=== PATIENT | female | born 1990 | race American Indian/Alaskan Native ===

== ENCOUNTER 2017-08-23 04:14 | Emergency (ER) | payer OTHER ==
[2017-08-23] MEDS ORDERED: MOTRIN PO ONE (05:29)
[2017-08-23] MEDS ORDERED: PERCOCET 5/325 PO ONE (06:26)
--- NOTE | 2017-08-23 06:58 | XRay Report ---
FINAL REPORT EXAM: XR FOREARM RT HISTORY: RT ARM swelling/redness r/o osteomylitis COMPARISONS: None. FINDINGS: AP and lateral views of the right forearm No bone lesion, periosteal reaction, or fracture. No deformity or gross malalignment. No subcutaneous emphysema. Soft tissue swelling about the distal right forearm and wrist. IMPRESSION: No evidence of osseous destruction. Consider follow-up noncontrast MRI as plain radiography is insensitive for detection of osteomyelitis.
--- NOTE | 2017-08-23 07:35 | Emergency Department Report ---
- General Chief complaint: Skin Rash Stated complaint: INSECT BITE Time Seen by Provider: 08/23/17 07:17 Source: patient, family Mode of arrival: Ambulatory Limitations: No Limitations - History of Present Illness Initial comments: Patient reported that she has a blister on her right wrist area and then she woke up with redness going up her forearm. Pain is 10 out of 10. Denies burning herself. Patient believes that she was bitten by an insect but unsure. She said that the redness is increasing in pain as achy and throbbing. Worse with movement better with rest. [id number] pain medication does not help. Denies any restriction in movement of fingers. Denies any nausea or vomiting. Denies any fever or chills. Redness and pain is localized to the right wrist or forearm. Denies any direct trauma. Denies any burn. Tetanus vaccine is up-to-date. Denies any pain in her hands or fingers. MD complaint: insect bite/sting (lisinopril inside bite with redness and swelling to right forearm), discoloration Onset/Timin -: days(s) Tetanus Up to Date: yes Location: RUE (right forearm) Severity: severe Severity scale (0 -10): 10 Quality: aching (and throbbing) Consistency: constant Improves with: immobilization, rest Worsens with: palpation, movement Context: other (question insect bite) Associated symptoms: athralgias, other (redness and swelling) Treatments Prior to Arrival: other ([id number] pain meds) - Related Data Previous Rx's Medication Instructions Recorded Last Taken Type Clindamycin [Clindamycin CAP] 300 mg PO Q6H 10 Days #10 cap 08/23/17 Unknown Rx Ibuprofen [Motrin] 600 mg PO Q8H PRN #15 tablet 08/23/17 Unknown Rx Oxycodone HCl/Acetaminophen 1 each PO Q6HR PRN #12 tablet 08/23/17 Unknown Rx [Percocet 7.5/325 mg] Allergies Allergy/AdvReac Type Severity Reaction Status Date / Time hairdye Allergy Unknown Rash Uncoded 08/23/17 07:19 Abscess Boil HPI - HPI Chief Complaint: Skin Rash Stated Complaint: INSECT BITE Time Seen by Provider: 08/23/17 07:17 Home Medications: Previous Rx's Medication Instructions Recorded Last Taken Type Clindamycin [Clindamycin CAP] 300 mg PO Q6H 10 Days #10 cap 08/23/17 Unknown Rx Ibuprofen [Motrin] 600 mg PO Q8H PRN #15 tablet 08/23/17 Unknown Rx Oxycodone HCl/Acetaminophen 1 each PO Q6HR PRN #12 tablet 08/23/17 Unknown Rx [Percocet 7.5/325 mg] Allergies/Adverse Reactions: Allergies Allergy/AdvReac Type Severity Reaction Status Date / Time hairdye Allergy Unknown Rash Uncoded 08/23/17 07:19 ED Review of Systems ROS: Stated complaint: INSECT BITE Other details as noted in HPI Comment: All other systems reviewed and negative Constitutional: no symptoms reported ENT: denies: throat pain Respiratory: no symptoms reported Cardiovascular: denies: chest pain, palpitations, dyspnea on exertion, orthopnea , edema, syncope, paroxysmal nocturnal dyspnea Gastrointestinal: denies: abdominal pain, nausea, vomiting, diarrhea Genitourinary: denies: dysuria, hematuria Musculoskeletal: joint swelling, arthralgia. denies: back pain, myalgia Skin: rash, change in color Neurological: denies: headache, numbness, paresthesias, abnormal gait, vertigo ED Past Medical Hx - Past Medical History Previous Medical History?: Yes Additional medical history: Obesity - Surgical History Past Surgical History?: No - Family History Family history: no significant - Social History Smoking Status: Never Smoker Substance Use Type: None - Medications Home Medications: Home Medications Medication Instructions Recorded Confirmed Last Taken Type Clindamycin [Clindamycin CAP] 300 mg PO Q6H 10 Days #10 cap 08/23/17 Unknown Rx Ibuprofen [Motrin] 600 mg PO Q8H PRN #15 tablet 08/23/17 Unknown Rx Oxycodone HCl/Acetaminophen 1 each PO Q6HR PRN #12 tablet 08/23/17 Unknown Rx [Percocet 7.5/325 mg] ED Physical Exam - General Limitations: No Limitations General appearance: alert, in no apparent distress - Head Head exam: Present: atraumatic, normocephalic, normal inspection - Eye Eye exam: Present: normal appearance, PERRL, EOMI. Absent: periorbital swelling , periorbital tenderness Pupils: Present: normal accommodation - ENT ENT exam: Present: normal exam, normal orophraynx, mucous membranes moist - Neck Neck exam: Present: normal inspection, full ROM, other (no C-spine tenderness). Absent: tenderness, meningismus, lymphadenopathy, thyromegaly - Respiratory Respiratory exam: Present: normal lung sounds bilaterally. Absent: respiratory distress, wheezes, rales, rhonchi, stridor, chest wall tenderness, accessory muscle use, decreased breath sounds, prolonged expiratory - Cardiovascular Cardiovascular Exam: Present: regular rate, normal rhythm, normal heart sounds. Absent: systolic murmur, diastolic murmur - GI/Abdominal GI/Abdominal exam: Present: soft, normal bowel sounds. Absent: distended, tenderness, guarding, rebound, rigid, organomegaly, mass, bruit, pulsatile mass , hernia - Extremities Exam Extremities exam: Present: normal inspection, full ROM, tenderness, normal capillary refill, joint swelling, other (no clubbing or cyanosis. Positive swelling to right forearm from wrist to proximal forearm excluded elbow. Tender to palpate. Positive erythema.). Absent: pedal edema, calf tenderness - Expanded Upper Extremity Exam Right General: Present: other (cellulitis). Absent: normal inspection, laceration, abrasion, nail injury (#), foreign body, amputation, avulsion Shoulder Exam: Present: normal inspection, full ROM. Absent: tenderness, swelling, abrasion, laceration, ecchymosis, deformity, crepidus, dislocation, erythema, tenderness over AC joint Upper Arm exam: Present: normal inspection, full ROM. Absent: tenderness, swelling, abrasion, laceration, ecchymosis, deformity, crepidus, dislocation, erythema Elbow exam: Present: normal inspection, full ROM. Absent: tenderness, swelling , abrasion, laceration, ecchymosis, deformity, crepidus, dislocation, erythema, effusion, pain w/ pronation/supination, tenderness over radial head Forearm Wrist exam: Present: full ROM, tenderness (tenderness to palpate from right distal forearm to right proximal forearm.), swelling (right distal forearm the right proximal forearm), erythema (redness to right distal forearm with small opening in and swelling and streaking in proximally stockinette right proximal forearm.). Absent: normal inspection, abrasion, laceration, ecchymosis, crepidus, dislocation, tenderness over anatomical snuff box, pain with axial thumb loading Hand Wrist exam: Present: normal inspection, full ROM, swelling (minimal swelling to dorsal aspect of right hand no finger involvement), other (patient with no restriction of movement to the fingers of right hand or left hand. Bilateral hand wellness ambassador is strong and equal). Absent: tenderness, abrasion, laceration, ecchymosis, deformity, crepidus, dislocation, erythema, amputation, nail avulsion, subungual hematoma Neuro motor exam: Present: wrist extension intact, thumb opposition intact, thumb IP flexion intact, thumb adduction intact, fingers 2-5 abduction intact Neurosensory exam: Present: 2-point discrimination, radial nerve intact, ulnar nerve intact, median nerve intact, other (no signs of tenosynovitis) Vascular: Present: normal capillary refill, radial pulse, brachial pulse, ulnar pulse. Absent: vascular compromise, Pallo, pulse deficit radial art, pulse deficit ulnar art, pulse deficit brachial art - Back Exam Back exam: Present: normal inspection, full ROM, other (ambulates without any difficulties). Absent: tenderness, CVA tenderness (R), CVA tenderness (L), muscle spasm, paraspinal tenderness, vertebral tenderness, rash noted - Neurological Exam Neurological exam: Present: alert, oriented X3, normal gait. Absent: motor sensory deficit, reflexes normal - Psychiatric Psychiatric exam: Present: normal affect, normal mood - Skin Skin exam: Present: warm, dry, intact, rash, erythema (please refer to right upper extremity examination for detail.). Absent: normal color - Expanded Skin Exam Expanded Type of lesion: Present: rash (erythema with small opening into right wrist area and streak in going up right forearm without any elbow involvement.) Distribution of rash: other (right forearm from right wrist to proximal right forearm.) Description of rash: Present: tenderness, erythematous, swelling, blisters ( small blister noted to the distal right forearm or wrist with open in the center ) ED Course Vital Signs 08/23/17 08/23/17 08/23/17 04:34 05:23 06:33 Temperature 98.7 F 98.7 F Pulse Rate 90 89 Respiratory 18 16 18 Rate Blood Pressure 131/87 131/87 O2 Sat by Pulse 98 100 Oximetry 08/23/17 08/23/17 08/23/17 07:33 08:57 09:04 Temperature Pulse Rate 83 Respiratory 18 18 Rate Blood Pressure 149/96 O2 Sat by Pulse 98 97 Oximetry - Reevaluation(s) Reevaluation #1: 08/23/17 08:45 Patient is stable. She was started on IV clindamycin for cellulitis of right forearm. Patient was given Motrin 800 mg by mouth in triage area and later Percocet 5/325 one tablet by mouth and emergency room. Immunizations up-to- date. Awaiting lab. X-ray report reveals no acute bony abnormality but patient does have soft tissue swelling Reevaluation #2: 08/23/17 10:48 Patient is stable. CBC is stable. Tolerated clindamycin IV without any adverse reaction. Pain is controlled. Patient still able to flex and extend bilateral wrist without any difficulties. She has no restriction in movement to both hands and fingers. Swelling is localized to right forearm at risk with streaking proximally. ED Medical Decision Making - Lab Data Result diagrams: 08/23/17 07:55 Lab Results 08/23/17 Range/Units 07:55 WBC 10.0 (4.5-11.0) K/mm3 RBC 5.18 H (3.65-5.03) M/mm3 Hgb 14.0 (10.1-14.3) gm/dl Hct 42.4 (30.3-42.9) % MCV 82 (79-97) fl MCH 27 L (28-32) pg MCHC 33 (30-34) % RDW 15.1 (13.2-15.2) % Plt Count 324 (140-440) K/mm3 Lymph % (Auto) 22.2 (13.4-35.0) % Kidder % (Auto) 7.1 (0.0-7.3) % Eos % (Auto) 4.0 (0.0-4.3) % Baso % (Auto) 0.3 (0.0-1.8) % Lymph # 2.2 (1.2-5.4) K/mm3 Kidder # 0.7 (0.0-0.8) K/mm3 Eos # 0.4 (0.0-0.4) K/mm3 Baso # 0.0 (0.0-0.1) K/mm3 Seg Neutrophils % 66.4 (40.0-70.0) % Seg Neutrophils # 6.6 (1.8-7.7) K/mm3 - Radiology Data Radiology results: report reviewed X-ray of right forearm reveal no acute bony abnormality. Patient does have soft tissue swelling to right forearm and wrist area. - Medical Decision Making ED course: Patient here reports that she has pain and swelling or redness to her right forearm with small opening to right wrist area and she is not sure she 's been bitten. This has been going on for over a day. She said swelling and redness has increased going up her forearm. Physical findings for cellulitis right forearm extending from wrist proximally not involved in elbow. She has mild swelling to dorsal aspect of right hand without any erythema to right hand or fingers. Patient has no signs of tenosynovitis. Patient was given and Motrin 800 mg in triage area without relief of pain and she was given additional Percocet 5/325 mg one tablet by mouth in ED and voice relief of pain. Patient was also given clindamycin 900 mg IV in emergency room. CBC is stable without any elevation in white count. X-ray revealed no bony abnormality but did show soft tissue swelling to right forearm mostly distally. I discussed the patient diagnosis and treatment plan and lab and x-ray findings. I discussed with her that she has cellulitis probably from insect bite or some kind of injury but she is going to need to monitor her right forearm and if she notices any increased swelling, fever, chills, increasing pain, increasing redness, restriction in movement to wrist, elbow and right hand and fingers please return to the emergency room [facility] I also told her if she noticed any change in color such as blueness to her hand and her fingers were forearm, change in temperature such as being cold to right upper extremity to please return to the nearest emergency room otherwise she needs to follow up with primary care physician in 2 days and if she does not have a primary care physician to return to the emergency room for recheck of cellulitis. I told her I will give her some [facility] which his primary care and she can call tomorrow for follow-up. Patient was understanding in and also voiced understanding of need to follow-up. Discharged home a prescription for clindamycin and she was given good Rx card to obtain medication, Motrin and Percocet. Critical care attestation.: If time is entered above; I have spent that time in minutes in the direct care of this critically ill patient, excluding procedure time. ED Disposition Clinical Impression: Cellulitis of forearm, right, Arthralgia of right forearm Disposition: DC-01 TO HOME OR SELFCARE Is pt being admited?: No Does the pt Need Aspirin: No Condition: Stable Instructions: Cellulitis (ED), Arthralgia (ED) Additional Instructions: Take antibiotic as prescribed and please ensure that you take antibiotic until they're completed. Follow-up with your primary care physician in 2 days and if he do not have a primary care physician follow-up with [facility] for reevaluation of cellulitis to right forearm. If you call [facility] and he cannot get an appointment for Thursday you can return to the emergency room for reevaluation. Keep affected area clean and dry. Please return to emergency room if you develop increasing redness, streaking, fever, difficulty moving in and the right forearm and increase in pain. Please do not drive or operate heavy machinery while taking Percocet as this medication causes drowsiness Prescriptions: Clindamycin [Clindamycin CAP] 300 mg PO Q6H 10 Days #10 cap Ibuprofen [Motrin] 600 mg PO Q8H PRN #15 tablet PRN Reason: mild pain Oxycodone HCl/Acetaminophen [Percocet 7.5/325 mg] 1 each PO Q6HR PRN #12 tablet PRN Reason: moderate to severe pain Referrals: PRIMARY CARE, [Primary Care Provider] - 08/25/17 [facility] [Outside] - 08/25/17 (If he cannot get into some outside Medical Center for follow-up in 2 days, please return to the emergency room for recheck cellulitis right forearm) Forms: Accompanied Note, Work/School Release Form(ED)
[2017-08-23] MEDS ORDERED: CLEOCIN 900 MG/50 mL 900 MG/50 ML BAG IV ONE (07:38)
[2017-08-23 08:03] LABS: Basophils % (Auto) 0.3 % (0.0-1.8); Eosinophils # (Auto) 0.4 K/mm3 (0.0-0.4); Hematocrit 42.4 % (30.3-42.9); Lymphocytes # (Auto) 2.2 K/mm3 (1.2-5.4); Lymphocytes % (Auto) 22.2 % (13.4-35.0); Mean Corpuscular HGB Conc 33 % (30-34); Mean Corpuscular Hemoglobin 27 pg (28-32); Mean Corpuscular Volume 82 fl (79-97); Monocytes # (Auto) 0.7 K/mm3 (0.0-0.8); Monocytes % (Auto) 7.1 % (0.0-7.3); Platelet Count 324 K/mm3 (140-440); Red Blood Count 5.18 M/mm3 (3.65-5.03); Red Cell Distribution Width 15.1 % (13.2-15.2)
[2017-08-23 11:01] VITALS: BP 140/88
== END 2017-08-23 12:10 | disposition home or self-care (01) ==
LOC: ED 04:14
DX: L03.113 Cellulitis of right upper limb (principal); Z91.09 Other allergy status, other than to drugs and biological substances
CPT/HCPCS: 36415; 85025; 96365

== ENCOUNTER 2017-10-01 23:10 | Emergency (ER) | payer SELFPAY | END 2017-10-01 23:11 | disposition left against medical advice (07) | LOC: ED 23:10 | DX: M79.602 Pain in left arm (principal); Z53.21 Procedure and treatment not carried out due to patient leaving prior to being seen by health care provider ==

== ENCOUNTER 2018-03-01 19:33 | Emergency (ER) | payer OTHER ==
[2018-03-01 19:55] VITALS: BP 140/80
[2018-03-01] MEDS ORDERED: MOTRIN PO ONE (22:22)
--- NOTE | 2018-03-01 23:58 | Emergency Department Report ---
ED Lower Extremity HPI - General Chief Complaint: Extremity Injury, Lower Stated Complaint: FOOT PAIN Time Seen by Provider: 03/01/18 22:21 Source: patient Mode of arrival: Ambulatory Limitations: No Limitations - History of Present Illness Initial Comments: This is a 27-year-old female nontoxic, well nourished in appearance, no acute signs of distress presents to the ED with c/o of right foot pain. Patient stated that she had a pervious fracture in that area. Patient denies any new trauma. Patient denies any numbness, tingling, fever, chills, nausea, vomiting , chest pain, shortness of breath, headache, stiff neck. Patient denies any joint swelling or joint redness. Patient denies decreased range of motion. Patient stated has decreased gait due to pain. Patient denies any allergies or significant past medical history. Injury: Foot: Right Severity: mild Severity scale (0 -10): 8 Improves With: immobilization Worsens With: weight bearing, palpation Associated Symptoms: able to partially bear weight, ambulatory. denies: snap/ pop sensation, swelling, numbness, tingling, unable to bear weight - Related Data Previous Rx's Medication Instructions Recorded Last Taken Type Clindamycin [Clindamycin CAP] 300 mg PO Q6H 10 Days #10 cap 08/23/17 Unknown Rx Ibuprofen [Motrin] 600 mg PO Q8H PRN #15 tablet 08/23/17 Unknown Rx Oxycodone HCl/Acetaminophen 1 each PO Q6HR PRN #12 tablet 08/23/17 Unknown Rx [Percocet 7.5/325 mg] Ibuprofen [Motrin] 600 mg PO Q8H PRN #30 tablet 03/01/18 Unknown Rx Allergies Allergy/AdvReac Type Severity Reaction Status Date / Time hairdye Allergy Unknown Rash Uncoded 08/23/17 07:19 ED Review of Systems ROS: Stated complaint: FOOT PAIN Other details as noted in HPI Constitutional: denies: chills, fever Eyes: denies: eye pain, eye discharge, vision change ENT: denies: ear pain, throat pain Respiratory: denies: cough, shortness of breath, wheezing Cardiovascular: denies: chest pain, palpitations Endocrine: no symptoms reported Gastrointestinal: denies: abdominal pain, nausea, diarrhea Genitourinary: denies: urgency, dysuria, discharge Musculoskeletal: denies: back pain, joint swelling, arthralgia Skin: denies: rash, lesions Neurological: denies: headache, weakness, paresthesias Psychiatric: denies: anxiety, depression Hematological/Lymphatic: denies: easy bleeding, easy bruising ED Past Medical Hx - Past Medical History Previous Medical History?: No Additional medical history: Obesity - Surgical History Past Surgical History?: No - Social History Smoking Status: Never Smoker Substance Use Type: None - Medications Home Medications: Home Medications Medication Instructions Recorded Confirmed Last Taken Type Clindamycin [Clindamycin CAP] 300 mg PO Q6H 10 Days #10 cap 08/23/17 Unknown Rx Ibuprofen [Motrin] 600 mg PO Q8H PRN #15 tablet 08/23/17 Unknown Rx Oxycodone HCl/Acetaminophen 1 each PO Q6HR PRN #12 tablet 08/23/17 Unknown Rx [Percocet 7.5/325 mg] Ibuprofen [Motrin] 600 mg PO Q8H PRN #30 tablet 03/01/18 Unknown Rx ED Physical Exam - General Limitations: No Limitations General appearance: alert, in no apparent distress - Head Head exam: Present: atraumatic, normocephalic - Eye Eye exam: Present: normal appearance - ENT ENT exam: Present: mucous membranes moist - Neck Neck exam: Present: normal inspection - Respiratory Respiratory exam: Present: normal lung sounds bilaterally. Absent: respiratory distress - Cardiovascular Cardiovascular Exam: Present: regular rate, normal rhythm. Absent: systolic murmur, diastolic murmur, rubs, gallop - GI/Abdominal GI/Abdominal exam: Present: soft, normal bowel sounds - Extremities Exam Extremities exam: Present: normal inspection, full ROM, tenderness, normal capillary refill. Absent: joint swelling, calf tenderness - Expanded Lower Extremity Exam Right Hip exam: Present: normal inspection, full ROM. Absent: tenderness, swelling Upper Leg exam: Present: normal inspection, full ROM. Absent: tenderness, swelling Knee exam: Present: normal inspection, full ROM. Absent: tenderness, swelling Lower Leg exam: Present: normal inspection, full ROM. Absent: tenderness, swelling Ankle exam: Present: normal inspection, full ROM. Absent: tenderness, swelling Foot/Toe exam: Present: normal inspection, full ROM, tenderness. Absent: swelling, abrasion, laceration, ecchymosis, deformity, crepidus, dislocation, erythema, amputation, puncture wound, foreign body, calcaneal tenderness, tenderness at base of 5th metatarsal, nail avulsion, subungual hematoma Neuro vascular tendon exam: Present: no vascular compromise. Absent: pulse deficit, abnormal cap refill, motor deficit, sensory deficit, tendon deficit, extremity cold to touch, pallor, abnormal 2-point discrimination, decreased fine /light touch, foot drop, peroneal nerve deficit, significant pain with passive ROM of distal joint Gait: Positive: observed and limited by pain 1 - pain here 1 - pain here - Back Exam Back exam: Present: normal inspection, full ROM - Neurological Exam Neurological exam: Present: alert, oriented X3, normal gait - Psychiatric Psychiatric exam: Present: normal affect, normal mood - Skin Skin exam: Present: warm, dry, intact, normal color. Absent: rash ED Course Vital Signs 03/01/18 19:53 Temperature 99.6 F Pulse Rate 87 Respiratory 18 Rate Blood Pressure 140/80 O2 Sat by Pulse 100 Oximetry - Reevaluation(s) Reevaluation #1: 03/01/18 23:57 Patient is speaking in full sentences with no signs of distress noted. ED Lower Extremity MDM - Medical Decision Making This is a 27-year-old female that presents with right foot strain. Patient is stable and was examined by me. I referred patient to an orthopedic doctor for further evaluation for possible MRI. X-ray has been obtained and dictated by the radiologist. Patient is notified of the x-ray report with noted by the patient. Patient does have normal gait with no tenderness and no joint swelling. No ecchymosis. no joint redness or swelling. Not warm to touch. No signs of cellulites present. Patient was instructed to RICE therapy. Patient received Motrin for pain. Patient is discharged with Motrin. At time of discharge, the patient does not seem toxic or ill in appearance. No acute signs of distress noted. Patient agrees to discharge treatment plan of care. No further questions noted by the patient. Critical care attestation.: If time is entered above; I have spent that time in minutes in the direct care of this critically ill patient, excluding procedure time. ED Disposition Clinical Impression: Right foot strain Qualifiers: Encounter type: initial encounter Qualified Code(s): S96.911A - Strain of unspecified muscle and tendon at ankle and foot level, right foot, initial encounter Disposition: TO HOME OR SELFCARE Is pt being admited?: No Does the pt Need Aspirin: No Condition: Stable Instructions: RICE Therapy (ED) Additional Instructions: Follow-up with a orthopedic doctor in 3-5 days or if symptoms worsen and continue return to emergency room as soon as possible. Prescriptions: Ibuprofen [Motrin] 600 mg PO Q8H PRN #30 tablet PRN Reason: Pain Referrals: PRIMARY CAREMD [Primary Care Provider] - 3-5 Days DARWIN DELEON MD [Staff Physician] - 3-5 Days [facility] [Outside] - 3-5 Days [facility] [Outside] - 3-5 Days Forms: Work/School Release Form(ED)
--- NOTE | 2018-03-02 00:02 | XRay Report ---
FINAL REPORT PROCEDURE: XR FOOT 3+V RT TECHNIQUE: RIGHT foot radiographs, AP, lateral, and oblique views. CPT 08082 HISTORY: right foot pain COMPARISON: No prior studies are available for comparison. FINDINGS: Fracture (s) and/or Dislocation(s): None . Alignment: Normal . Joint space(s): Normal . Soft tissues: Normal . Bone mineralization: Normal . Foreign bodies: None . Calcaneal spurring: None . IMPRESSION: Normal Examination .
== END 2018-03-02 00:32 | disposition home or self-care (01) ==
LOC: ED 19:33
DX: S96.911A Strain of unspecified muscle and tendon at ankle and foot level, right foot, initial encounter (principal); Z91.09 Other allergy status, other than to drugs and biological substances; X58.XXXA Exposure to other specified factors, initial encounter; Y93.89 Activity, other specified; Y99.8 Other external cause status; Y92.89 Other specified places as the place of occurrence of the external cause
CPT/HCPCS: 99283

== ENCOUNTER 2018-03-09 19:20 | Emergency (ER) | payer SELFPAY ==
[2018-03-09 20:05] VITALS: BP 162/82
[2018-03-09] MEDS ORDERED: NORCO 5/325 PO ONE (20:21)
[2018-03-09] MEDS ORDERED: XYLOCAINE 1% MPF 5 mL INFILTRATI ONE (20:22)
[2018-03-09] MEDS ORDERED: ROCEPHIN IM ONE (20:22)
[2018-03-09] MEDS ORDERED: MOTRIN PO ONE (20:27)
--- NOTE | 2018-03-09 20:27 | Emergency Department Report ---
Abscess Boil HPI - HPI Chief Complaint: Skin/Abscess/Foreign Body Stated Complaint: BOIL ON NOSE Time Seen by Provider: 03/09/18 20:19 Duration: >1 Week Location: Other (between eyes) Severity: Mild History: Yes Pain, No Fever, No Purulent Drainage, No Numbness, No Foreign Body , No Previous History, No Insect Bite Home Medications: Previous Rx's Medication Instructions Recorded Last Taken Type Azithromycin 250 mg PO DAILY #10 tablet 03/09/18 Unknown Rx Allergies/Adverse Reactions: Allergies Allergy/AdvReac Type Severity Reaction Status Date / Time hairdye Allergy Unknown Rash Uncoded 08/23/17 07:19 ED Review of Systems ROS: Stated complaint: BOIL ON NOSE Other details as noted in HPI Comment: All other systems reviewed and negative Constitutional: denies: chills, fever Eyes: denies: eye pain, eye discharge, vision change ENT: denies: ear pain, throat pain Respiratory: denies: cough Cardiovascular: denies: palpitations Endocrine: denies: excessive sweating, flushing Gastrointestinal: denies: abdominal pain Genitourinary: denies: urgency Musculoskeletal: denies: back pain Skin: lesions (boil on bridge of nose). denies: rash Neurological: denies: headache, weakness Psychiatric: denies: anxiety, depression Hematological/Lymphatic: denies: easy bleeding ED Past Medical Hx - Past Medical History Additional medical history: Obesity - Surgical History Past Surgical History?: No - Social History Smoking Status: Never Smoker Substance Use Type: None - Medications Home Medications: Home Medications Medication Instructions Recorded Confirmed Last Taken Type Azithromycin 250 mg PO DAILY #10 tablet 03/09/18 Unknown Rx ED Abscess Boil Physical Exam - Exam General: Vital signs noted. No distress. Alert and acting appropriately. Size: 1 cm Exam: Yes Tenderness, Yes Surrounding Cellulites/Erythema, Yes Normal Neurologic Exam, Yes Normal Circulation, No Fluctuance, No Lymphangitis, No Crepitation, No Heart Murmur ED Course Vital Signs 03/09/18 20:00 Temperature 98.6 F Pulse Rate 99 H Respiratory 16 Rate Blood Pressure 162/82 O2 Sat by Pulse 100 Oximetry Critical care attestation.: If time is entered above; I have spent that time in minutes in the direct care of this critically ill patient, excluding procedure time. ED Medical Decision Making - Medical Decision Making boil and cellulitis on bridge of nose has been there for weeks now w pain no drainage no id on face no involving orbits eoms intact non ill non septic afebrile - Differential Diagnosis boil w cellulitis on bridge of nose not invading orbits of eyes ED Disposition Clinical Impression: Boil, Cellulitis Disposition: TO HOME OR SELFCARE Is pt being admited?: No Does the pt Need Aspirin: No Condition: Stable Instructions: Cellulitis (ED) Additional Instructions: warm compresses with epsom salts three times per day for 20 m each time motrin or tylenol for pain or fever follow up with dermatology or pcp this week to be sure it is responding to medications diet and activity as tolerated Referrals: AMBER SHORT MD [Staff Physician] - 3-5 Days AUSTIN PIMENTEL MD [Referring] - 3-5 Days Time of Disposition: 20:24
== END 2018-03-09 21:00 | disposition home or self-care (01) ==
LOC: ED 19:20
DX: J34.0 Abscess, furuncle and carbuncle of nose (principal); E66.9 Obesity, unspecified; Z91.048 Other nonmedicinal substance allergy status
CPT/HCPCS: 96372; 99282; J0696